=== PATIENT | male | born 1995 | race Caucasian/White ===

== ENCOUNTER 2018-05-13 21:10 | Emergency (ER) | payer OTHER ==
--- NOTE | 2018-05-13 22:26 | XRay Report ---
FINAL REPORT EXAM: XR ANKLE 3+V RT HISTORY: Fall from ladder beam to hit ankle. Pain swelli TECHNIQUE: Right ankle three views PRIORS: None. FINDINGS: There is acute nondisplaced transverse fracture through the lateral malleolus. There is a nondisplaced vertical fracture through the medial distal tibia along the articular surface. No additional acute fractures are identified. There is lateral soft tissue swelling present at the ankle. IMPRESSION: Acute fractures of the a lateral malleolus and the distal tibia
[2018-05-13] MEDS ORDERED: MOTRIN PO ONE (22:43)
[2018-05-13] MEDS ORDERED: TYLENOL PO ONE (22:43)
[2018-05-13] MEDS ORDERED: NORCO 5/325 PO ONE (23:26)
--- NOTE | 2018-05-14 00:02 | Emergency Department Report ---
ED Fall HPI - General Chief Complaint: Fall Stated Complaint: RIGHT ANKLE PAIN Time Seen by Provider: 05/13/18 22:40 Source: patient Mode of arrival: Wheelchair - History of Present Illness Initial Comments: Prior to arrival, patient was working on a ladder and fell about 12 feet. No loss of consciousness. Did not hit his head. After his fall, a being fell onto his right ankle. He has not been able to walk on it since. Not currently on blood thinners. - Related Data Previous Rx's Medication Instructions Recorded Last Taken Type traMADol [Ultram] 50 mg PO Q6HR PRN #15 tablet 05/14/18 Unknown Rx Allergies Allergy/AdvReac Type Severity Reaction Status Date / Time No Known Allergies Allergy Verified 05/13/18 21:38 ED Review of Systems ROS: Stated complaint: RIGHT ANKLE PAIN Other details as noted in HPI Comment: All other systems reviewed and negative Musculoskeletal: joint swelling, arthralgia, myalgia. denies: back pain ED Past Medical Hx - Past Medical History Previous Medical History?: No - Surgical History Past Surgical History?: No - Social History Smoking Status: Current Every Day Smoker Substance Use Type: None - Medications Home Medications: Home Medications Medication Instructions Recorded Confirmed Last Taken Type traMADol [Ultram] 50 mg PO Q6HR PRN #15 tablet 05/14/18 Unknown Rx ED Physical Exam - General Limitations: Language Barrier General appearance: alert, in no apparent distress - Head Head exam: Present: atraumatic, normocephalic - Eye Eye exam: Present: normal appearance - ENT ENT exam: Present: mucous membranes moist - Neck Neck exam: Present: normal inspection - Respiratory Respiratory exam: Present: normal lung sounds bilaterally. Absent: respiratory distress - Cardiovascular Cardiovascular Exam: Present: regular rate, normal rhythm. Absent: systolic murmur, diastolic murmur, rubs, gallop - GI/Abdominal GI/Abdominal exam: Present: soft, normal bowel sounds. Absent: tenderness - Rectal Rectal exam: Present: deferred - Extremities Exam Extremities exam: Present: normal inspection, joint swelling (rt ankle with swelling/echymosis and lateral malleolus TTP. Rt foot is neurovasc intact. Rt knee with NROM. 3 cm contusion noted to inside left elbow. Lt Elbow with NROM. Low suspicion for fx) - Back Exam Back exam: Present: normal inspection - Neurological Exam Neurological exam: Present: alert, oriented X3 - Psychiatric Psychiatric exam: Present: normal affect, normal mood - Skin Skin exam: Present: warm, dry, intact, normal color. Absent: rash ED Course Vital Signs 05/13/18 05/13/18 05/13/18 21:11 21:25 21:59 Temperature 98.7 F 98.7 F Pulse Rate 93 H 90 Respiratory 18 18 16 Rate Blood Pressure 150/72 150/72 O2 Sat by Pulse 98 98 98 Oximetry 05/13/18 05/13/18 05/13/18 22:53 23:53 23:56 Temperature Pulse Rate Respiratory 16 16 16 Rate Blood Pressure O2 Sat by Pulse Oximetry ED Medical Decision Making - Radiology Data Radiology results: report reviewed, image reviewed - Medical Decision Making 22-year-old male with no significant past medical history that presents status post fall with left elbow and right ankle pain. Vital signs are stable. Patient is well-appearing. Significant pain noted at the right ankle. Imaging shows evidence of distal tibia fracture with intra-articular extension. There is also a distal fibular fracture. There is no displacement of either the tibia or fibula. This is a closed fracture. He will be placed in a posterior leg splint and made nonweightbearing. Repeat neurovasc exam s/p splint placement is intact. Left elbow with superficial small contusion. He has normal range of motion. I offered him an x-ray, but he felt comfortable without one. I have low suspicion for fracture given his great mobility in the joint. Patient has been provided orthopedic referral. He is cleared for discharge. - Differential Diagnosis fracture, contusion, subluxation, dislocation, sprain Critical care attestation.: If time is entered above; I have spent that time in minutes in the direct care of this critically ill patient, excluding procedure time. ED Disposition Clinical Impression: Closed fracture of distal end of right fibula and tibia Disposition: - TO HOME OR SELFCARE Is pt being admited?: No Does the pt Need Aspirin: No Condition: Stable Instructions: Ankle Fracture (ED) Additional Instructions: Please follow up with Dr. Pereira for further management of your ankle fracture. Prescriptions: traMADol [Ultram] 50 mg PO Q6HR PRN #15 tablet PRN Reason: Pain Referrals: BRADY PEREIRA MD [Staff Physician] - 3-5 Days
[2018-05-14 01:21] VITALS: BP 126/64
== END 2018-05-14 01:20 | disposition home or self-care (01) ==
LOC: ED 21:10
DX: S82.64XA Nondisplaced fracture of lateral malleolus of right fibula, initial encounter for closed fracture (principal); S82.391A Other fracture of lower end of right tibia, initial encounter for closed fracture; S50.02XA Contusion of left elbow, initial encounter; F17.200 Nicotine dependence, unspecified, uncomplicated; W11.XXXA Fall on and from ladder, initial encounter; Y93.89 Activity, other specified; Y99.0 Civilian activity done for income or pay; Y92.69 Other specified industrial and construction area as the place of occurrence of the external cause

== ENCOUNTER 2018-06-09 21:12 | Emergency (ER) | payer SELFPAY ==
[2018-06-09] MEDS ORDERED: TYLENOL ONE (21:22)
[2018-06-09] MEDS ORDERED: TYLENOL PO ONE (21:36)
--- NOTE | 2018-06-10 02:15 | Emergency Department Report ---
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 Patient admits to fever and feeling weak. He thinks that there may be a bug in his left ear. Patient has no past medical history currently taking no medications on a daily basis has no known drug allergies. Patient reports that the pain is throbbing constant keeps him from sleeping. MD complaint: ear pain -: week(s) (1) Location: L ear Severity scale (0 -10): 8 Quality: other (throbbing) Consistency: constant Improves with: none Associated Symptoms: fever, pain with swallowing. denies: rhinorrhea - Related Data Previous Rx's Medication Instructions Recorded Last Taken Type traMADol [Ultram] 50 mg PO Q6HR PRN #15 tablet 05/14/18 Unknown Rx Amoxicillin/K Clav Tab [Augmentin 1 tab PO Q12HR #20 tab 06/10/18 Unknown Rx 875 mg] Ibuprofen [Motrin 600 MG tab] 600 mg PO Q8H PRN #30 tablet 06/10/18 Unknown Rx Ofloxacin 0.3% [Floxin Otic] 5 ml OT QDAY #1 bottle 06/10/18 Unknown Rx Allergies Allergy/AdvReac Type Severity Reaction Status Date / Time No Known Allergies Allergy Verified 05/13/18 21:38 ED Dental HPI - General Chief complaint: Earache Stated complaint: EAR PAIN Time Seen by Provider: 06/10/18 02:09 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 Mode of arrival: Ambulatory Limitations: Language Barrier - Related Data Previous Rx's Medication Instructions Recorded Last Taken Type traMADol [Ultram] 50 mg PO Q6HR PRN #15 tablet 05/14/18 Unknown Rx Amoxicillin/K Clav Tab [Augmentin 1 tab PO Q12HR #20 tab 06/10/18 Unknown Rx 875 mg] Ibuprofen [Motrin 600 MG tab] 600 mg PO Q8H PRN #30 tablet 06/10/18 Unknown Rx Ofloxacin 0.3% [Floxin Otic] 5 ml OT QDAY #1 bottle 06/10/18 Unknown Rx Allergies Allergy/AdvReac Type Severity Reaction Status Date / Time No Known Allergies Allergy Verified 05/13/18 21:38 ED Review of Systems ROS: Stated complaint: EAR PAIN Other details as noted in HPI Constitutional: fever, weakness ENT: ear pain, throat pain Cardiovascular: denies: chest pain, palpitations Endocrine: no symptoms reported Gastrointestinal: denies: abdominal pain, nausea, diarrhea Genitourinary: denies: urgency, dysuria Musculoskeletal: denies: back pain, joint swelling, arthralgia ED Past Medical Hx - Surgical History Additional Surgical History: FX RLL - Social History Smoking Status: Current Every Day Smoker Substance Use Type: Alcohol - Medications Home Medications: Home Medications Medication Instructions Recorded Confirmed Last Taken Type traMADol [Ultram] 50 mg PO Q6HR PRN #15 tablet 05/14/18 Unknown Rx Amoxicillin/K Clav Tab [Augmentin 1 tab PO Q12HR #20 tab 06/10/18 Unknown Rx 875 mg] Ibuprofen [Motrin 600 MG tab] 600 mg PO Q8H PRN #30 tablet 06/10/18 Unknown Rx Ofloxacin 0.3% [Floxin Otic] 5 ml OT QDAY #1 bottle 06/10/18 Unknown Rx ED Physical Exam - General Limitations: Language Barrier General appearance: alert, in no apparent distress - Head Head exam: Present: atraumatic, normocephalic - Expanded ENT Exam Expanded TM/Canal exam: Erythema: Left TM, Loss of Landmarks: Left TM, Canal Tenderness: Left TM (with swelling) Mouth exam: Present: normal external inspection Throat exam: Positive: tonsillar erythema. Negative: tonsillomegaly - Neck Neck exam: Present: full ROM. Absent: lymphadenopathy - Respiratory Respiratory exam: Present: normal lung sounds bilaterally. Absent: respiratory distress - Cardiovascular Cardiovascular Exam: Present: regular rate, normal rhythm. Absent: systolic murmur, diastolic murmur, rubs, gallop ED Course Vital Signs 06/09/18 21:45 Respiratory 18 Rate ED Medical Decision Making - Medical Decision Making Patient has been evaluated by this provider in fast track. Patient's appeared to have otitis externa as well as otitis media. Ibuprofen given for pain management. We'll discharge patient on Augmentin and ibuprofen. Patient is to follow-up with his primary care provider symptoms persist or gets worse Critical care attestation.: If time is entered above; I have spent that time in minutes in the direct care of this critically ill patient, excluding procedure time. ED Disposition Clinical Impression: Otitis media Qualifiers: Otitis media type: unspecified Chronicity: acute Qualified Code(s): H66.90 - Otitis media, unspecified, unspecified ear Otitis externa of left ear Qualifiers: Otitis externa type: swimmer's ear Chronicity: acute Qualified Code(s): H60.332 - Swimmer's ear, left ear Disposition: TO HOME OR SELFCARE Is pt being admited?: No Does the pt Need Aspirin: No Condition: Stable Instructions: Otitis Media (ED), Otitis Externa (ED) Additional Instructions: Complete antibiotics as prescribed. Pain medication as needed. Follow up with her primary care provider if her symptoms persist or gets worse. Complete los antibiticos segn lo prescrito. Medicamento para el dolor segn sea necesario Nelson un seguimiento con ellison proveedor de atencin primaria si vignesh sntomas persisten o empeoran. Prescriptions: Amoxicillin/K Clav Tab [Augmentin 875 mg] 1 tab PO Q12HR #20 tab Ibuprofen [Motrin 600 MG tab] 600 mg PO Q8H PRN #30 tablet PRN Reason: Pain Ofloxacin 0.3% [Floxin Otic] 5 ml OT QDAY #1 bottle Referrals: PRIMARY CARE,MD [Primary Care Provider] - 3-5 Days Forms: Accompanied Note, Work/School Release Form(ED) Print Language: GRENADIAN
[2018-06-10 02:31] VITALS: BP 139/73
== END 2018-06-10 02:24 | disposition home or self-care (01) ==
LOC: ED 21:12
DX: H66.92 Otitis media, unspecified, left ear (principal); H60.332 Swimmer's ear, left ear; F17.200 Nicotine dependence, unspecified, uncomplicated
CPT/HCPCS: 99282